=== PATIENT | male | born 1995 | race Caucasian/White ===

== ENCOUNTER 2020-12-16 10:17 | Emergency (ER) | payer BC ==
[2020-12-16 10:29] VITALS: RESP 18; TEMP 97.8
[2020-12-16] MEDS ORDERED: DIPH,PERTUS(ACELL)TETVAC-LF 0.5 ML VIAL IM ONE (10:57)
[2020-12-16] MEDS ORDERED: LIDOCAINE 1% INJ 10MG/ML (20 ML MDV) SQ ONE (10:57)
--- NOTE | 2020-12-16 11:02 | ED ---
General Adult HPI - General Chief complaint: Wound/Laceration Stated complaint: Knee injury Time Seen by Provider: 12/16/20 10:35 Source: patient, RN notes reviewed Mode of arrival: wheelchair Limitations: no limitations - History of Present Illness Initial comments: 25-year-old male presents to the emergency room for a laceration. Patient reports he was using a chain saw when it kicked back into his right knee. Patient denies pain with flexing the joint. Patient states tetanus is not up-to-date. Patient denies any other lacerations or injuries. Patient has no other complaints at this time including shortness of breath, chest pain, abdominal pain, nausea or vomiting, headache, or visual changes. - Related Data Allergies Allergy/AdvReac Type Severity Reaction Status Date / Time No Known Allergies Allergy Verified 12/16/20 10:29 Review of Systems ROS Statement: Those systems with pertinent positive or pertinent negative responses have been documented in the HPI. ROS Other: All systems not noted in ROS Statement are negative. Past Medical History Past Medical History: No Reported History History of Any Multi-Drug Resistant Organisms: None Reported Past Surgical History: Adenoidectomy, Tonsillectomy Past Psychological History: No Psychological Hx Reported Smoking Status: Never smoker Past Alcohol Use History: None Reported Past Drug Use History: None Reported General Exam Limitations: no limitations General appearance: alert, in no apparent distress Head exam: Present: atraumatic, normocephalic, normal inspection Eye exam: Present: normal appearance, PERRL, EOMI. Absent: scleral icterus, conjunctival injection, periorbital swelling ENT exam: Present: normal exam, mucous membranes moist Neck exam: Present: normal inspection. Absent: tenderness, meningismus, lymphadenopathy Respiratory exam: Present: normal lung sounds bilaterally. Absent: respiratory distress, wheezes, rales, rhonchi, stridor Cardiovascular Exam: Present: regular rate, normal rhythm, normal heart sounds. Absent: systolic murmur, diastolic murmur, rubs, gallop, clicks Extremities exam: Present: full ROM (Full range of motion of the right knee.), normal capillary refill (Capillary refill less than 2 seconds in the right lower extremity, dp pulse 2+), other (Patient has a 4 cm laceration overlying the anterior medial aspect of the right knee.) Neurological exam: Present: alert Course Vital Signs 12/16/20 10:27 Temperature 97.8 F Pulse Rate 77 Respiratory 18 Rate Blood Pressure 109/67 O2 Sat by Pulse 98 Oximetry Procedures - Laceration Laceration #1 Consent Obtained: verbal consent Indication: laceration Site: lower extremity Size (cm): 4 Description: linear Anesthetic Used: lidocaine 1% Anesthesia Technique: local infiltration Amount (mls): 10 Pre-repair: wound explored, irrigated extensively Type of Sutures: nylon Size of Sutures: 3-0 Number of Sutures: 7 Technique: simple, interrupted Patient Tolerated Procedure: well, no complications Medical Decision Making - Medical Decision Making Wound was irrigated with a liter of sterile water. It was explored, no foreign bodies. No deep structure involvement such as tendon injury, full range of motion of the knee. X-ray does not show any acute process aside from laceration. No bony injury. Sutures were applied. Wound is well approximated. Discussed care parameters. Discussed return parameters. Disposition Clinical Impression: Laceration Disposition: HOME SELF-CARE Condition: Good Instructions (If sedation given, give patient instructions): Care For Your Stitches (ED), Laceration (ED) Additional Instructions: Please keep wound clean. Apply antibiotic ointment twice daily. Monitor for signs of infection. Return in 10-14 days for suture removal or earlier if you have any worsening symptoms. Is patient prescribed a controlled substance at d/c from ED?: No Referrals: Isaac Abdi MD [Primary Care Provider] - 1-2 days Time of Disposition: 12:13
[2020-12-16] MEDS ORDERED: HYDROcodone/APAP 5-325MG 1 EACH TAB PO STA (11:33)
--- NOTE | 2020-12-16 11:40 | XR ---
EXAMINATION TYPE: XR knee complete RT DATE OF EXAM: 12/16/2020 COMPARISON: NONE HISTORY: Pain TECHNIQUE: Three views are submitted. FINDINGS: Joint spaces are preserved. Osseous structures are intact. No acute fracture seen. There is radiol ucency anteriorly near the patella correlate for soft tissue injury. IMPRESSION: 1. No acute fracture or dislocation.
[2020-12-16 12:37] VITALS: BP 126/84; PULSE 88
== END 2020-12-16 12:37 | disposition home or self-care (01) ==
LOC: EC 10:17
DX: S81.011A Laceration without foreign body, right knee, initial encounter (principal); Z90.09 Acquired absence of other part of head and neck; W29.3XXA Contact with powered garden and outdoor hand tools and machinery, initial encounter; Z23 Encounter for immunization
CPT/HCPCS: 73562; 90715; 99283; 12002; 90471; J2001